=== PATIENT | female | born 1945 | race Caucasian/White ===

== ENCOUNTER → 2024-08-19 11:14 | Outpatient (REF) | payer MEDICARE, BC, SELFPAY | LOC: HWRAD 11:14 | PROVIDERS: ATTENDING PHYSICIAN Family Medicine | DX: M81.0 Age-related osteoporosis without current pathological fracture (principal); Z87.81 Personal history of (healed) traumatic fracture | CPT/HCPCS: 72052; 72072; 72110 ==

== ENCOUNTER → 2024-09-14 15:19 | Outpatient (REF) | payer MEDICARE, BC, SELFPAY | LOC: HWRAD 15:19 | PROVIDERS: ATTENDING PHYSICIAN Physician Assistant Medical; FAMILY PHYSICIAN Family Medicine | DX: M25.512 Pain in left shoulder (principal); M25.562 Pain in left knee; G89.29 Other chronic pain | CPT/HCPCS: 73030; 73564 ==

== ENCOUNTER → 2024-09-21 10:25 | Outpatient (REF) | payer MEDICARE, BC, SELFPAY | LOC: HWRAD 10:25 | PROVIDERS: ATTENDING PHYSICIAN Internal Medicine Rheumatology; FAMILY PHYSICIAN Family Medicine | DX: M80.00XA Age-related osteoporosis with current pathological fracture, unspecified site, initial encounter for fracture (principal); Z78.0 Asymptomatic menopausal state | CPT/HCPCS: 77080 ==

== ENCOUNTER 2025-01-09 16:07 | Emergency (ER) | payer MEDICARE, BC, SELFPAY ==
[2025-01-09 16:09] VITALS: BP 178/76
[2025-01-09 16:56] VITALS: BMI 38.6
[2025-01-09 17:00] VITALS: BP 139/72
--- NOTE | 2025-01-09 18:27 | ED.GENMED ---
History of Present Illness
General
Chief Complaint: Head Injury
Source: patient and family
Exam Limitations: none
Time Seen by Provider: 01/09/25 17:55
History of Present Illness
History of Present Illness:
79yoF with a history of hypertension and hyperlipidemia presenting with her son for evaluation after a fall this afternoon. Patient was walking outside of her house onto her walkway when she fell. She does not recall what happened but denies any
preceding dizziness or symptoms. She was found by a neighbor on the ground and was conscious upon their arrival. Son states he saw her 1 hour prior to this as they were shopping together And patient seemed normal at that time. Her neighbors had
to assist her back into the home. She was complaining of a headache prompting son to bring her to the ED for evaluation. She has no other complaints at this time and denies any neck pain, vomiting, dizziness, chest pain, shortness of breath.
Patient had an echocardiogram yesterday which she was told was normal. She also had lab work including a CBC, CMP, TSH, and lipid panel which was unremarkable other than elevated LDL levels. She does not take any blood thinners. Son states she is
acting normally at this time.
Past History
Past History
ED Past Medical History: HTN and Hypercholesterolemia
ED Past Surgical History: Appendectomy
Social History
Tobacco: Former smoker
Alcohol: None
Drug: None
Personal:
Living: alone
Phy Exam
General Physical Exam
General Presentation: well appearing and no apparent distress
General age: appears stated age
General Skin: warm and dry
General Habitus: normal
General Mental: alert
ENT Exam
ENT Exam: other (+Occipital hematoma and tenderness. No ecchymosis or other external signs of head trauma. No cervical spine tenderness. )
Eye Exam
Eye Exam: PERRL
Cardiovascular Exam
Cardiovascular Exam: regular rate/rhythm and normal peripheral pulses (2+ DP pulses bilaterally)
Pulmonary Exam
Pulmonary Exam: lungs clear, no respiratory distress, no rales, chest non tender, no crackles, no rhonchi and no wheezing
Gastrointestinal Exam
Gastrointestinal Exam: non tender, soft and non distended
Neurological Exam
Neurological Exam: alert and other (Ambulating with a steady gait. No focal deficits.)
[place] Coma Scale
Eye Opening: Spontaneous
Verbal Response: Oriented
Motor Response: Obeys Commands
GCS Total Score: 15
Musculoskeletal Exam
Musculoskeletal Exam: other (No C/T/L spine tenderness)
Skin Exam
Skin Exam: normal color and warm/dry
Psychiatric Exam
Psychiatric Exam: normal mood/affect
Course
Orders/Labs/Results
Orders:
Orders
01/09/25 16:12
CT Cervical Spine W/o Iv Contr Urgent
Comment:
Reason For Exam: head injury, fall.
CT Head W/o Iv Contrast Urgent
Comment:
Reason For Exam: Head injury
Vital Signs
Initial and Last Documented VS:
Initial Vital Signs
Temp Pulse Resp BP Pulse Ox
98.6 F 67 16 178/76 95
01/09/25 16:09 01/09/25 16:09 01/09/25 16:09 01/09/25 16:09 01/09/25 16:09
Last Documented Vital Signs
Temp Pulse Resp BP Pulse Ox
98.1 F 69 17 139/72 96
01/09/25 17:00 01/09/25 17:00 01/09/25 17:00 01/09/25 17:00 01/09/25 17:00
MDM/Problems Addressed
Differential Diagnosis Includes:
79yoF here after a fall with head injury this afternoon. Patient does not remember the incident. Denies any preceding symptoms/dizziness. C/o headache and has a posterior hematoma on exam. Otherwise back to baseline with no other reported injuries.
She is hypertensive on arrival with otherwise stable vitals. She is awake, alert, with a GCS of 15. No other injuries appreciated on exam. Differential diagnosis includes but is not limited to: Closed head injury, hematoma, fracture, intracranial
hemorrhage, concussion
CT head and cervical spine obtained prior to initial exam. Imaging negative for traumatic injuries. Patient ambulating independently on exam. She did have an outpatient echocardiogram and blood work yesterday. I was able to review her blood work
on her [facility] em[facility] and labs overall unremarkable. I do not have the echocardiogram report available but she was told it was normal. Patient denies any dizziness, chest pain, shortness of breath. Do not feel lab work would plant changer at
this time. Both patient and son are comfortable with discharge back home. She has an appointment with her PCP scheduled in 3 days. Strict ED return precautions discussed. Patient discharged in stable condition.
*Critical Care Note
Total Time (30-74mins, 75-104mins- exclusive of procedures): Not Applicable
ED Attending Note
-
Portions of this chart may have been created with voice recognition software.� Occasional wrong word or��sound alike� substitutions may have occurred due to the inherent limitations of voice recognition software.
Discharge Plan
Departure
Patient Disposition: Home (Routine Discharge)
Date of Disposition: 01/09/25
Time of Disposition: 18:29
Patient with high blood pressure during this ER visit?: Yes
Discharge Problem:
Unwitnessed fall, Hematoma of scalp
Instructions: Head Injury in Adults (DC)
Prescriptions:
No Action
valsartan-hydrochlorothiazide 1 EACH tablet
1 ea PO DAILY
atenolol 25 MG tablet
25 mg PO BID
esomeprazole magnesium [Nexium] 20 MG capsule,delayed release(DR/EC)
20 mg PO DAILY
ezetimibe-simvastatin 1 TABLET tablet
1 tab PO QPM
Patient Comments:
unsure of dose!!!
oxycodone-acetaminophen 5 MG/325 MG tablet
1 tab PO Q4HPRN PRN (Reason: Pain) Qty: 10 0RF
Referrals:
aLury Lao MD [Family Provider] -
Activity Restrictions/Additional Instructions:
Apply ice to affected area to help with swelling. Take Tylenol as needed for pain.
Please follow-up with your family doctor on Saturday as previously scheduled. Return to the ER immediately with any new or worsening symptoms.
Interventions
Interventions:
*Risk Screen - Suicide Last Done: 01/09/25 17:10
*General Assessment Last Done: 01/09/25 17:07
*Neglect/Abuse Screening Last Done: 01/09/25 17:08
*ED- Fall Risk Assessment Last Done: 01/09/25 17:06
*ED COVID-19 Vaccine History Last Done: 01/09/25 17:05
*Nursing Disposition Last Done: 01/09/25 19:04
ED- Neurological Assessment Last Done: 01/09/25 17:10
ED-Skin Assessment Last Done: 01/09/25 17:11
Discharge Date and Time
Discharge Date/Time: 01/09/25 19:06
Print Language: TAJIK
== END 2025-01-09 19:06 | disposition home or self-care (01) ==
LOC: EMR 16:07
PROVIDERS: EMERGENCY PHYSICIAN Emergency Medicine; FAMILY PHYSICIAN Family Medicine
DX: S00.03XA Contusion of scalp, initial encounter (principal); W19.XXXA Unspecified fall, initial encounter; Y93.01 Activity, walking, marching and hiking; E78.00 Pure hypercholesterolemia, unspecified; I10 Essential (primary) hypertension; Z87.891 Personal history of nicotine dependence; Z90.49 Acquired absence of other specified parts of digestive tract
CPT/HCPCS: 99284; 70450; 72125